=== PATIENT | female | born 1940 | race Caucasian/White ===

== ENCOUNTER 2021-04-15 13:45 | Outpatient (NON) | payer MEDICARE, SELFPAY | END 2021-04-15 13:46 | disposition home or self-care (01) | PROVIDERS: Visit Provider Family Medicine | DX: I87.2 Venous insufficiency (chronic) (peripheral) (principal); L03.115 Cellulitis of right lower limb | CPT/HCPCS: 87070; 87205 ==

== ENCOUNTER 2021-04-16 08:06 | Outpatient (NON) | payer MEDICARE, SELFPAY ==
[2021-04-16 08:27] LABS: Basophils Absolute Auto 0.04 K/mm3 (0.00-0.10); Basophils Percent Auto 0.6 % (0.0-1.0); Eosinophils Absolute Auto 0.28 K/mm3 (0.02-0.50); Hematocrit 38.9 % (35.0-42.0); Hemoglobin 12.8 g/dL (11.7-13.8); Immature Granulocyte Absolute 0.03 K/mm3 (0.00-0.00); Immature Granulocyte Percent A 0.4 % (0.0-0.0); Lymphocytes Absolute Auto 1.51 K/mm3 (1.10-4.50); Lymphocytes Percent Auto 21.6 % (18.0-42.0); Mean Corpuscular HGB Conc 32.9 g/dL (32.0-36.0); Mean Corpuscular Hemoglobin 32.6 pg (27.0-31.0); Mean Platelet Volume 10.4 fl (9.2-11.8); Monocytes Absolute Auto 0.69 K/mm3 (0.10-0.90); Monocytes Percent Auto 9.9 % (2.0-11.0); Neutrophils Absolute Auto 4.5 K/mm3 (1.7-7.2); Neutrophils Percent Auto 63.5 % (50.0-70.0); Platelet Count Result 336 K/mm3 (150-420); Red Blood Count 3.93 M/mm3 (4.20-5.40); Red Cell Distribution Width 13.1 % (11.6-14.4)
[2021-04-16 08:43] LABS: Alanine Aminotransferase 23 U/L (14-59); Albumin Level 3.6 g/dL (3.4-5.0); Alkaline Phosphatase 75 U/L (46-116); Anion Gap 8 mmol/L (8-16); Aspartate Amino Transferase 13 U/L (15-37); Bilirubin,Total 0.2 mg/dL (0.00-1.00); Blood Urea Nitrogen 16 mg/dL (7-18); Calcium 8.7 mg/dL (8.5-10.1); Carbon Dioxide 31 mmol/L (21-32); Chloride 104 mmol/L (98-108); Estimated Glomerular Filt Rate > 60; Glucose 125 mg/dL (70-99); Osmolality Calculated 298 mOsm/kg (285-295); Potassium 4.4 mmol/L (3.5-5.1); Sodium 143 mmol/L (136-145); Total Protein 6.8 g/dL (6.4-8.2)
[2021-04-16 09:26] LABS: Erythrocyte Sedimentation Rate 28 mm/hr (0-20)
== END 2021-04-16 08:07 | disposition home or self-care (01) ==
LOC: CHSLAB 08:09
PROVIDERS: Visit Provider Family Medicine
DX: L03.115 Cellulitis of right lower limb (principal)
CPT/HCPCS: 36415; 80053; 85025; 85652

== ENCOUNTER 2022-01-29 19:47 | Emergency (ER) | payer MEDICARE, SELFPAY ==
[2022-01-29 19:50] VITALS: BP 145/50; PULSE 75; RESP 18; TEMP 37.1; O2SAT 98
--- NOTE | 2022-01-29 19:50 | ED.SKABFB ---
HPI - Skin/Abscess/Foreign Bdy General Chief complaint: Skin/Abscess/Foreign Body Stated complaint: cellulitis on right leg Time Seen by Provider: 01/29/22 19:50 Source: patient Mode of arrival: ambulatory Limitations: no limitations History of Present Illness HPI narrative: Ms. Keller is a an 82-year-old female patient presenting to the clinic today with complaints of possible cellulitis to the right leg. She reports that she got a skin tear and that is becoming red and swollen. States she was moving a gas tin can and cut her leg 2 days ago. Has used peroxide and has applied triple antibiotic ointment to the affected area however is becoming more red and swollen and painful. Related Data Home Medications Medication Instructions Recorded Confirmed albuterol 90 mcg/actuation aerosol 90 mcg inhalation Q4H PRN Dyspnea 01/29/22 01/29/22 inhaler furosemide 40 mg tablet 40 mg PO DAILY 01/29/22 01/29/22 indomethacin 50 mg capsule 50 mg PO BID 01/29/22 01/29/22 lorazepam 2 mg tablet 2 mg PO DAILY 01/29/22 01/29/22 losartan 25 mg tablet 25 mg PO DAILY 01/29/22 01/29/22 Allergies Allergy/AdvReac Type Severity Reaction Status Date / Time carvedilol Allergy Unknown Verified 01/29/22 20:01 Sulfa (Sulfonamide Allergy Rash Verified 01/29/22 20:01 Antibiotics) Review of Systems Review of Systems: pertinent positives per HPI. Patient denies any fever, chills, rash, headache, visual changes, dizziness, cough, runny nose, sore throat, shortness of breath, chest pain, palpitations, nausea, vomiting, diarrhea, constipation, abdominal pain, or any urinary issues. PMFSH Comments At the time of my signature, I reviewed and agree with the nursing past medical, surgical, social, and family history. There is no relevant family history pertinent to the patient complaint. Exam Narrative: General: Well-developed, well nourished, in no apparent distress Head: Normocephalic, atraumatic. Cardio: Regular rate and rhythm, s1 and s2 normal, no murmur appreciated. Resp: Clear to auscultation bilaterally, no rhonchi, rales, wheezing or rubs. Integumentary: [place], warm, and dry, skin tear with green pustular center to the right lower leg with surrounding redness and erythremia. Course Course Emergency Course: Portions of this record may have been created with voice recognition software. Level of Care: Express Care Visit Vital Signs Vital signs: Vital Signs Temperature 37.1 C 01/29/22 19:50 Pulse Rate 75 01/29/22 19:50 Respiratory Rate 18 01/29/22 19:50 Blood Pressure 145/50 H 01/29/22 19:50 Pulse Oximetry 98 01/29/22 19:50 Oxygen Delivery Room Air 01/29/22 19:50 Temperature 37.1 C 01/29/22 19:50 Pulse Rate 75 01/29/22 19:50 Respiratory Rate 18 01/29/22 19:50 Blood Pressure 145/50 H 01/29/22 19:50 Pulse Oximetry 98 01/29/22 19:50 Oxygen Delivery Room Air 01/29/22 19:50 Vital signs reviewed MDM - Skin/Abscess/Foreign Bdy MDM Narrative Medical decision making narrative: At the time of visit patient is resting comfortably on the exam table. I suspect she has a acute wound infection with surrounding cellulitis. I will go ahead and put her on a course of doxycycline and have her clean the wound daily as instructed. Supportive measures were discussed with the patient she voiced understanding of discharge instructions and agrees to the treatment plan Differential Diagnosis Differential diagnosis: Likely abscess of skin or subcutaneous tissue, cellulitis and other (Cellulitis, skin tear, skin infection) Discharge Plan Discharge Clinical Impression: Skin tear Cellulitis Qualifiers: Site of cellulitis: extremity Site of cellulitis of extremity: lower extremity Laterality: right Qualified Code(s): L03.115 - Cellulitis of right lower limb Patient Disposition: Home, Self-Care Condition: Stable Instructions: Antibiotic Form, Cellulitis (ED), Skin Tear (ED) Additional Instructions:
== END 2022-01-29 20:20 | disposition home or self-care (01) ==
PROVIDERS: Emergency Provider Nurse Practitioner Family; PCP Family Medicine
DX: S81.811A Laceration without foreign body, right lower leg, initial encounter (principal); L03.115 Cellulitis of right lower limb; W45.8XXA Other foreign body or object entering through skin, initial encounter; I25.10 Atherosclerotic heart disease of native coronary artery without angina pectoris; Z95.5 Presence of coronary angioplasty implant and graft; I10 Essential (primary) hypertension; Z86.73 Personal history of transient ischemic attack (TIA), and cerebral infarction without residual deficits; F41.9 Anxiety disorder, unspecified; I25.2 Old myocardial infarction
CPT/HCPCS: 99213; G0463

== ENCOUNTER 2022-04-14 11:27 | Emergency (ER) | payer MEDICARE, SELFPAY ==
[2022-04-14 12:06] VITALS: BP 93/55; PULSE 75; RESP 20; TEMP 36.8; O2SAT 96
--- NOTE | 2022-04-14 12:54 | ED.SKABFB ---
HPI - Skin/Abscess/Foreign Bdy General Chief complaint: Skin/Abscess/Foreign Body Stated complaint: wound on right leg Source: patient Mode of arrival: ambulatory Limitations: no limitations History of Present Illness HPI narrative: 82 y/o female presented for c/o Right lower leg wound, bruising and tenderness after scraping the leg on the coffee table 3 days ago. States it was bleeding at the time and she approximated the skin flap, cleansed the site and applied steri strips for 2 days, then removed them and washed the site, applied more steri strips. No steri strips in place at this time. Endorses throbbing to site. Patient is concerned for infection stating she gets cellulitis 'easily.' Denies swelling, pus, fever, or warmth. Patient had carotid endarterectomy 3 weeks ago. Related Data Home Medications Medication Instructions Recorded Confirmed albuterol 90 mcg/actuation aerosol 90 mcg inhalation Q4H PRN Dyspnea 01/29/22 04/14/22 inhaler furosemide 40 mg tablet 40 mg PO DAILY 01/29/22 01/29/22 indomethacin 50 mg capsule 50 mg PO BID 01/29/22 01/29/22 lorazepam 2 mg tablet 2 mg PO PRN PRN Anxiety 01/29/22 01/29/22 losartan 25 mg tablet 25 mg PO DAILY 01/29/22 04/14/22 ergocalciferol (vitamin D2) 1,250 mcg PO WEEKLY 04/14/22 mcg (50,000 unit) capsule (Vitamin D2) gabapentin 300 mg capsule mg 04/14/22 Allergies Allergy/AdvReac Type Severity Reaction Status Date / Time carvedilol Allergy Unknown Verified 04/14/22 12:29 Sulfa (Sulfonamide Allergy Rash Verified 04/14/22 12:29 Antibiotics) Review of Systems Review of Systems: CONSTITUTIONAL: Denies body aches, fever, chills, or sweats. CARDIOVASCULAR: Denies chest pain, palpitations, or edema. RESPIRATORY: Denies cough or dyspnea. SKIN: Right leg wound MUSCULOSKELETAL: Denies back pain, joint pain, or myalgia. NEUROLOGIC: Denies headache, numbness, tingling, or weakness. PMFSH Comments At time of signature, I have reviewed and agree with nursing past medical, surgical, social and family history unless otherwise noted. Please see nursing chart for further information. There is no relevant family history pertinent to the presenting complaint Exam Narrative: GENERAL: Well-appearing EYES: conjunctivae clear, and EOMI. ENT: Mucous membranes moist. Oropharynx without edema, erythema or lesions. NECK: Supple. No lymphadenopathy CHEST: Clear to auscultation. HEART: Regular rate and rhythm. SKIN: Warm, dry. Right lateral lower leg with skin avulsion, approx 3cm; approximated with small scabbed area, no active drainage, induration or fluctuance. Tender to touch. Pt with poor turgor and purpura throughout. NEURO: Alert and oriented x3. Course Course Emergency Course: Patient is aware of diagnosis, understands and agrees to treatment plan. Anticipatory guidance given. Patient agrees to follow-up as directed and is aware of reasons to seek care at the emergency department. Portions of this record may have been created with voice recognition software Level of Care: Express Care Visit Vital Signs Vital signs: Vital Signs Temperature 98.3 F 04/14/22 12:06 Pulse Rate 75 04/14/22 12:06 Respiratory Rate 20 04/14/22 12:06 Blood Pressure 93/55 L 04/14/22 12:06 Pulse Oximetry 96 04/14/22 12:06 Oxygen Delivery Room Air 04/14/22 12:06 Temperature 98.3 F 04/14/22 12:06 Pulse Rate 75 04/14/22 12:06 Respiratory Rate 20 04/14/22 12:06 Blood Pressure 93/55 L 04/14/22 12:06 Pulse Oximetry 96 04/14/22 12:06 Oxygen Delivery Room Air 04/14/22 12:06 Reviewed MDM - Skin/Abscess/Foreign Bdy MDM Narrative Medical decision making narrative: Instructed patient to go to nearest ER immediately for any worsening symptoms including but not limited to: fever, pus, pain, or any symptoms concerning to the patient. Differential Diagnosis Differential diagnosis: Likely abscess of skin or subcutaneous tissue, urticaria, c
== END 2022-04-14 13:17 | disposition home or self-care (01) ==
PROVIDERS: Emergency Provider Nurse Practitioner Family; PCP Family Medicine
DX: S81.812A Laceration without foreign body, left lower leg, initial encounter (principal); W22.03XA Walked into furniture, initial encounter; I25.10 Atherosclerotic heart disease of native coronary artery without angina pectoris; Z95.5 Presence of coronary angioplasty implant and graft; I10 Essential (primary) hypertension; I25.2 Old myocardial infarction; Z86.73 Personal history of transient ischemic attack (TIA), and cerebral infarction without residual deficits; Z86.16 Personal history of COVID-19
CPT/HCPCS: 99213; G0463

== ENCOUNTER 2024-12-31 10:50 | Emergency (ER) | payer MEDICARE, SELFPAY ==
--- OUTSIDE RECORDS SUMMARY | 2024-12-31 10:52 | XMS_ITS | Clinical Summary ---
Author Organization [facility] Address [address] [place] [address] Care Team Providers Care Wall Attendant Name Role Phone Unavailable Primary Care Provider Unavailabl e Social History Tobacco Use Types Packs/Day Years Used Date Smoking Tobacco: Never Comments Unknown Sex and Gender Information Value Date Recorded Sex Assigned at Not on file Legal Sex Female 10:06 PM CDT Gender Identity Not on file Sexual Orientation Not on file Plan of Treatment Health Maintenance Due Date Last Done Comments DTaP, Tdap and Td Vaccines ( 1 - Tdap) 01/19/1960 Pneumococcal Vaccine: 50+ Ye ars (1 of 1 - PCV) 1991 Zoster Vaccines (1 of 2) 1991 Dexa Scan (General) 2006 RSV Immunization or 60+ Years (1 - 1-dose 75+ series) 01/19/2016 COVID-19 Vaccine (2023-2 5 season) 2024 Meningococcal B Vaccine Aged Out No l onger eligible based on patient's age to complete this topic Meningococcal Vaccine Aged Out No toya liz eligible based on patient's age to complete this topic RSV Immunizations Under 20 Months Aged Out No longer eligible based on patient's age to complete this topic
--- OUTSIDE RECORDS SUMMARY | 2024-12-31 10:52 | XMS_ITS | Clinical Summary ---
Author Organization [facility] Address [address] [facility], [place] [address] Phone Care Team Providers Care Smoked Meat Preparer Name Role Phone Paul Hernandez MD Primary Care Provider [phone] Allergies Active Allergy Reactions Criticality Noted Date Comments Carvedilol Unknown Sulfa Antibiotics Hives Medium 06/12/2017 Sulfamethoxazole-Trimethoprim Rash Medium 2016 Medications LORazepam (ATIVAN) 2 MG Tablet TK 1 T PO TID PRN 0 8 Active albuterol (PROVENTIL, VENTOLIN) (2.5 MG/3ML) 0.083% Nebulizer Soln INL CONTENTS OF ONE NEBULE VIA NEBULIZER Q 6 H 5 8 Active losartan (COZAAR) 25 MG Tablet take 1 tablet by oral route every day 6 Active ergocalciferol (VITAMIN D) 29117 UNIT Capsule TK 1 C PO Q WK 0 8 Active tiotropium (SPIRIVA RESPIMAT) 1.25 MCG/ACT Aerosol Solution [The details of the medication are not available because there are pending changes by a home health clinician.] 2 Inhaler 8 Active Additional Information Patient not taking.Reason: Other (discontinued by MD), Informant: Self, Reported on 12/15/2024 PROAIR HFA 108 (90 Base) MCG/ACT Aerosol Solution INL 2 PFS PO Q 4 TO 6 H PRN 0 8 Active azithromycin (ZITHROMAX Z-ERIS) 250 MG Tablet [The details of the medication are not available because there are pending changes by a home health clinician.] 6 Tab 8 Active Additional Information Patient not taking.Reason: Other (med list cleanup), Informant: Self, Reported on 12/29/2024 umeclidinium (INCRUSE ELLIPTA) 62.5 MCG/INH AEROSOL POWDER, BREATH ACTIVATED [The details of the medication are not available because there are pending changes by a home health clinician.] 1 Each 5 8 Active Additional Information Patient not taking.Reason: Other (med list cleanup), Informant: Self, Reported on 12/15/2024 acetaminophen (TYLENOL) 325 MG Tablet Take 2 Tablets by mouth every 6 hours as needed for Mild or more severe pain. Active Budeson-Glycop yrrol-Formoter ol (Breztri Aerosphere) 160-9-4.8 MCG/ACT Aerosol Take 2 Puffs by mouth 2 times daily. Active Diclofenac Sodium (VOLTAREN) 1 % Gel Apply 2 g 4 times daily. Active docusate sodium (COLACE) 100 MG Tablet Take 100 mg by mouth 2 times daily. Active DULoxetine HCl 20 MG Capsule Delayed Release Sprinkle Take 1 Capsule by mouth daily. Active Fluticasone Furoate 50 MCG/ACT AEROSOL POWDER, BREATH ACTIVATED 1 [place] by Nasal route daily. Active furosemide (LASIX) 40 MG Tablet Take 1 Tablet by mouth 2 times daily. Active Magnesium 200 MG Tablet Take 1 Tablet by mouth daily. Active Multivitamin-M inerals (Multivitamin Women 50+) Tablet Take 1 Tablet by mouth daily. Active Potassium Gluconate (SD Potassium Gluconate) 595 (99 K) MG Tablet Take 1 Tablet by mouth 2 times daily. Active Propylene Glycol 0.6 % Solution Place 1 Drop in both eyes daily. Active tiZANidine (ZANAFLEX) 2 MG Tablet Take 1 Tablet by mouth every 6 hours as needed for Muscle spasms. Active traMADol (ULTRAM) 50 MG Tablet Take 1 Tablet by mouth every 6 hours as needed for Mild or more severe pain. Active traMADol (ULTRAM) 50 MG Tablet 7 12/08/19 25 Discontin ued(Med List Clean Up) aspirin EC (ASPIR-LOW) 81 MG Tablet Delayed Response take 1 tablet by oral route every day 6 12/08/19 25 Discontin ued(Med List Clean Up) ADVAIR DISKUS 250-50 MCG/DOSE AEROSOL POWDER, BREATH ACTIVATED INL 1 PUFF PO BID 3 8 12/08/19 25 Discontin ued(Med List Clean Up) SYMBICORT 160-4.5 MCG/ACT Aerosol INL 2 PFS PO TWICE DAILY. RM WITH WATER AFTER U TO REDUCE AFTERTASTE AND INCIDENCE OF CANDIDIASIS. DO NOT SWALLOW 2 8 12/08/19 25 Discontin ued(Med List Clean Up) Naproxen Sodium 220 MG Capsule Take by mouth. 12/08/19 25 Discontin ued(Med List Clean Up) dexamethasone (DECADRON) 4 MG Tablet Take by mouth. 7 12/08/19 25 Discontin ued(Med List Clean Up) benzonatate (TESSALON) 100 MG Capsule Take by mouth. 7 12/08/19 25 Discontin ued(Med List Clean Up) imiquimod (ALDARA) 5 % Cream 7 12/08/19 25 Discontin ued(Med List Clean Up) furosemide (LASIX) 20 MG Tablet TAKE 1 TABLET BY MOUTH EVERY DAY 7 12/08/19 25 Discontin ued(Med List Clean Up) bisacodyl EC (DULCOLAX) 5 MG Tablet Delayed Response Take by mouth. 12/08/19 25 Discontin ued(Med List Clean Up) MAGNESIUM PO 200 mg. 12/08/19 25 Discontin ued(Med List Clean Up) nitrofurantoin , macrocrystal-m onohydrate, (MACROBID) 100 MG Capsule 0 8 12/08/19 25 Discontin ued(Med List Clean Up) Coenzyme Q10 10 MG Capsule Take by mouth. 0 25 Discontin ued(Med List Clean Up) guaiFENesin (MUCINEX) 600 MG TABLET SR 12 HR Take by mouth. 12/08/19 25 Discontin ued(Med List Clean Up) Potassium 99 MG Tablet Take by mouth. 12/08/19 25 Discontin ued(Med List Clean Up) Docusate Sodium (COLACE PO) Take by mouth. 12/08/19 25 Discontin ued(Med List Clean Up) indomethacin (INDOCIN) 50 MG Capsule 8 12/08/19 25 Discontin ued(Med List Clean Up) Active Problems Problem Noted Date Diagnosed Date Panlobular emphysema 11/05/2017 Pulmonary hypertension 11/05/2017 Non morbid obesity 11/05/2017 Chronic respiratory failure with hypoxia 018 Encounters Date Type Department Care Team Description 12/29/2024 4:00 AM CDT Home Care Visit [address] [address] Valerie Li, RN SN - OASIS DISCHARGE 12/23/2024 1:00 PM CDT Home Care Visit [address] [address] Valerie Li, RN SN - WOUND VISIT 12/21/2024 2:30 PM CDT Home Care Visit [address] [address] Valerie Li, RN SN - WOUND VISIT 12/15/2024 11:00 AM CDT Home Care Visit [address] [address] Valerie Li, RN SN - WOUND VISIT 12/13/2024 1:30 PM CDT Home Care Visit [address] [address] Riddhi Stewart RN SN - WOUND VISIT 12/13/2024 Home Care Visit [address] [address] Riddhi Love RN CARE CONFERENCE 12/11/2024 Home Care Visit [address] [address] Valerie Li, RN CASE COMMUNICATION 12/10/2024 Home Care Visit [address] [address] Valerie Li, RN TELEPHONE ENCOUNTER 12/10/[address] [address] Hayde López RN Wound Supplies 12/09/2024 3:00 PM CDT Home Care Visit [address] [address] Laine Bosch, PT PT - INITIAL EVALUATION 12/08/2024 11:30 AM CDT Home Care Visit [address] [address] Valerie Li RN SN - WOUND VISIT 12/06/2024 1:00 PM CDT Home Care Visit [address] [address] Riddhi Love RN SN - OASIS START OF CARE 12/06/2024 Plan of Care Documentation [address] [address] from Last 3 Months Immunizations Immunization Administration Dates Next Due TDAP Vaccine 11/30/2017 Family History Medical History Relation Name Comments Heart Disease Father Hypertension Father Stroke Father Breast Cancer Mother Diabetes Mother Heart Disease Mother Hypertension Mother Relation Name Status Comments Father Mother Social History Tobacco Use Types Packs/Day Years Used Date Smoking Tobacco: Former Cigarettes 2 40 Smokeless Tobacco: Never Tobacco Cessation:Counseling Given: No Alcohol Use Standard Drinks/Week Comments No 0 (1 standard drink = 0.6 oz pur e alcohol) Comments No Sex and Gender Information Value Date Recorded Sex Assigned at Not on file Legal Sex Female 12:44 AM CDT Gender Identity Not on file Sexual Orientation Not on file Last Filed Vital Signs Vital Sign Reading Time Taken Comments Blood Pressure 122/64 12/29/2024 11:00 AM CDT Pulse 89 12/29/2024 11:00 AM CDT Temperature 37.1 C (98.7 F) 12/29/2024 11:00 AM CDT Respiratory Rate 18 12/29/2024 11:00 AM CDT Oxygen Saturation 96% 12/29/2024 11:00 AM CDT Inhaled Oxygen Concentration - - Weight 85.4 kg (188 lb 4.8 oz) 06/24/2018 1:13 P M SODA FOUNTAIN CLERK Height 160 cm (5' 3) 06/24/2018 1:13 PM SODA FOUNTAIN CLERK Body Mass Index 33.36 06/24/2018 1:13 PM SODA FOUNTAIN CLERK Plan of Treatment Health Maintenance Due Date Last Done Comments Hepatitis C Virus (HCV) Screening 1940 SARS-COV-2 Immunization ( season) 2024 04/11/2021, 10/06/2020, 09/10/2020 DEXA Bone Density 02/04/2025 02/04/2023, , 01/26/2019 Influenza Immunization (#1) 02/27/202503/29, 03/26/2023, 03/13/2023, Additional history exists Pneumococcal Immunization (50+ years) Completed 04/29/2016, 06/29/2010 Pneumococcal Immunization Combined Discontinued 04/29/2016, 06/29/2010 Zoster Immunization Completed 10/10/2021, Respiratory Syncytial Virus (RSV) Immunization (Adult) Completed 07/06/2023, 06/12/2023 DTaP/Tdap/Td Immunization Discontinued 2024, 11/30/2017, 12/22/2014 Hepatitis B Immunization Aged Out No longer eligible based on patient's age to complete this topic Human Papillomavirus (HPV) Immunization Aged Out No longer eligible based on patient's age to complete this topic Meningococcal Immunization (ACWY) Aged Out No longer eligible based on patient's age to complete this topic Rotavirus Immunization Aged Out No lo nger eligible based on patient's age to complete this topic Insurance MEDICARE [facility] Advance Directives * Full Code (Latest Code Status on File) Date Activated Date Inactivated Comments 12/07/2024 8:00 PM Care Teams Smoked Meat Preparer Relationship Specialty Start Date End Date Paul Hernandez MD [address] [place] [address] PCP - General Internal Medicine 09/01/17
--- OUTSIDE RECORDS SUMMARY | 2024-12-31 10:52 | XMS_ITS | Clinical Summary ---
Author Organization [facility] Address [address] [place] [address] Phone Care Team Providers Care Speech Language Pathologist Travel Name Role Phone Unavailable Primary Care Provider Unavailabl e Allergies No known active allergies Medications OXYCODONE HCL/ACETAMINOPHE N (PERCOCET ORAL) Take by mouth. Active ERGOCALCIFEROL, VITAMIN D2, (VITAMIN D ORAL) Take by mouth. Active Active Problems No known active problems Social History Tobacco Use Types Packs/Day Years Used Date Smoking Tobacco: Former Smokeless Tobacco: Never Comments No Sex and Gender Information Value Date Recorded Sex Assigned at Not on file Legal Sex Female 4:34 AM GENERATOR MECHANIC Gender Identity Not on file Sexual Orientation Not on file Last Filed Vital Signs Vital Sign Reading Time Taken Comments Blood Pressure 130/58 05/13/2011 11:22 AM GENERATOR MECHANIC Pulse 96 05/13/2011 11:22 AM GENERATOR MECHANIC Temperature 36.9 C (98.4 F) 05/13/2011 11:22 AM GENERATOR MECHANIC Respiratory Rate 18 05/13/2011 11:22 AM GENERATOR MECHANIC Oxygen Saturation - - Inhaled Oxygen Concentration - - Weight 68 kg (150 lb) 05/13/2011 11:22 AM GENERATOR MECHANIC Height 160 cm (5' 3) 05/13/2011 11:22 AM GENERATOR MECHANIC Body Mass Index 26.57 05/13/2011 11:22 AM GENERATOR MECHANIC Plan of Treatment Health Maintenance Due Date Last Done Comments DTAP/TDAP/TD VACCINES (1 - Tdap) 01/19/1960 PNEUMOCOCCAL VACCINE 50+ YEARS (1 of 1 - PCV) 01/18/19 91 ZOSTER VACCINE (1 of 2) 1991 OSTEOPOROSIS SCREENING 2006 RSV VACCINE (60+ or ) (1 - 1-dose 75+ series) 01/19/2016 INFLUENZA VACCINE (#1) 2025 Insurance MEDICARE PART A AND B [facility]
--- OUTSIDE RECORDS SUMMARY | 2024-12-31 10:52 | XMS_ITS | Encounter Summary ---
Author Organization [facility] Address [address] [place] [address] Care Team Providers Care As400 Analyst Name Role Phone Unavailable Primary Care Provider Unavailabl e Encounter Details Date Type Department Care Team (Late st Contact Info) Description 04/09/1998 Outpatient Historical [facility] Trinity Bates MD [address] [place], [place] [id number] Social History Tobacco Use Types Packs/Day Years Used Date Smoking Tobacco: Never Assessed Comments Unknown Sex and Gender Information Value Date Recorded Sex Assigned at Not on file Legal Sex Female 4:34 AM DEVELOPING MACHINE OPERATOR Gender Identity Not on file Sexual Orientation Not on file documented as of this encounter Plan of Treatment Not on file documented as of this encounter Visit Diagnoses Not on filedocumented in this encounter
--- OUTSIDE RECORDS SUMMARY | 2024-12-31 10:56 | XMS_ITS | Encounter Summary ---
Author Organization [facility] Address [address] [place] [address] Care Team Providers Care Industrial Technology Teacher Name Role Phone Paul Hernandez MD Primary Care Provider [phone] Luis Felipe Azul MD Unavailable [phone] Jerel Dupont MD Unavailable [phone] Raquel Candelaria RN Unavailable [phone] Cosme Vivas LPN Unavailable [phone] Prachi Merchant RN Unavailable [phone] Yelena DownsW Unavailable Unavaila ble Reason for Visit * Reason Onset Date Comments Scheduling Appointments 01/30/2021 Confirmi ng bone density scan- no answer Encounter Details Date Type Department Care Team (Late st Contact Info) Description 01/30/2021 Telephone [facility] [address] [place] [address] Lynn Paulino RT Scheduling Appointments (Confirming bone density scan- no answer) Social History Tobacco Use Types Packs/Day Years Used Date Smoking Tobacco: Former Cigarettes Q uit: 2007 Smokeless Tobacco: Former Comments:Smoking History Pac ks/day: 2 Packs Alcohol Use Standard Drinks/Week Comments No 0 (1 standard drink = 0.6 oz pur e alcohol) PHQ-2 Answer Date Recorded PHQ-2 Total Score 0 01/17/2021 Comments No Sex and Gender Information Value Date Recorded Sex Assigned at Not on file Legal Sex Female 3:31 AM HADOOP ANALYST Gender Identity Not on file Sexual Orientation Not on file Occupation Industry Job Start Date Job End Date retired Not on file Not on file Not on file documented as of this encounter Plan of Treatment Not on file documented as of this encounter Visit Diagnoses Not on filedocumented in this encounter Additional Health Concerns Infection Onset Date Last Indicated Resolved Time COVID: Suspected 03/21/2024 03/21/2024 03/21/2024 10:36 AM CDT COVID19 Comment:This patient is not immunocompromised. Based on a S&S onset date of 03/21/24 plus no immunosuppression this patient is first eligible for COVID: Recovered evaluation on 04/01/24. Anny Humphries, JAZMIN 03/21/2024 03/21/2024 04/07/2024 3:05 AM C DT COVID: Recovered Comment:Added based on recent COVID infection. 04/07/2024 04/08/2024 07/06/2024 3:[address] COVID: Suspected 09/13/2024 09/13/2024 09/13/2024 7:25 PM CDT documented as of this encounter Care Teams Industrial Technology Teacher Relationship Specialty Start Date End Date Paul Hernandez MD [address] [place] [address] PCP - General 09/26/16 Luis Felipe Azul MD [address] [place] [address] [place] [address] Phlebotomy Program Coordinator Cardiology 02/19/22 Jerel Dupont MD [address] [place] [address] [place] [address] Surgeon Vascular Surgery 03/14/22 Raquel Candelaria, CHETNA [address] [place] [address] [address] [place] [address] Station Engineer Main Line 10/22/22 12/01/22 Cosme Vivas LPN [address] [place] [address] [address] [place] [address] ACO Care Intelligence Officer Basic 01/27/23 01/27/23 Prachi Merchant RN [address] [place] [address] [address] [place] [address] Station Engineer Main Line 07/16/23 11/10/23 Yelena Downs, JOB COACHING Verification Engineer 07/29/23 08/06/23 documented as of this encounter
--- OUTSIDE RECORDS SUMMARY | 2024-12-31 10:56 | XMS_ITS | Encounter Summary ---
Author Organization [facility] Healthcare Address [address] [place] [address] Care Team Providers Care Merchandising Representative Name Role Phone Paul Hernandez MD Primary Care Provider [phone] Luis Felipe Azul MD Unavailable [phone] Jerel Dupont MD Unavailable [phone] Reason for Visit * Reason Onset Date Comments Test Results 12/26/2024 Encounter Details Date Type Department Care Team (Late st Contact Info) Description 12/26/2024 Telephone Family Physicians [facility] [address] [facility] [place] [address] Paul Hernandez MD [address] [place] [address] Test Results Social History Tobacco Use Types Packs/Day Years Used Date Smoking Tobacco: Former Cigarettes 1.5 51 1 957 - 2008 Passive Smoke Exposure: Past Smokeless Tobacco: Never Comments:Smoking History Pac ks/day: 2 Packs Alcohol Use Standard Drinks/Week Comments No 0 (1 standard drink = 0.6 oz pur e alcohol) [facility] Utilities Answer Date Recorded In the past 12 months has e THE Football App, gas, oil, or water company threatened to shut off services in your home? No 07/29/2023 Social Connection and Isolat ion Panel [NHANES] Answer Date Recorded In a typical week, how many times do you talk on the phone with family, friends, or neighbors? More than three times a week 07/29/2023 How often do you get togethe r with friends or relatives? Once a week 07/29/2023 How often do you attend chur ch or synagogue services? Never 07/29/2023 Do you belong to any clubs o r organizations such as druze groups, unions, fraternal or athletic groups, or school groups? No 07/29/2023 How often do you attend meet ings of the clubs or organizations you belong to? Never 07/29/2023 Are you , , di vorced, , never , or living with a partner? 07/29/2023 AUDIT-C Answer Date Recorded Q1: How often do you have a drink containing alcohol? Never 03/26/2024 Q2: How many drinks containi ng alcohol do you have on a typical day when you are drinking? Patient does not drink Q3: How often do you have si x or more drinks on one occasion? Never 03/26/2024 Overall Financial Resource Strain (CARDIA) Answe r Date Recorded How hard is it for you to pa y for the very basics like food, housing, medical care, and heating? Somewhat hard 07/29/2023 PHQ-2 Answer Date Recorded PHQ-2 Total Score (If total score is 3 or more points, staff should administer the PHQ-9) 0 12/01/2024 Hunger Vital Sign Answer Date Recorded Within the past 12 months, y ou worried that your food would run out before you got the money to buy more. Never true 07/29/19 24 Within the past 12 months, t he food you bought just didn't last and you didn't have money to get more. Never true 07/29/2023 PRAPARE - Transportation Answer Date Re corded In the past 12 months, has l ack of transportation kept you from medical appointments or from getting medications? No 07/01 In the past 12 months, has l ack of transportation kept you from meetings, work, or from getting things needed for daily living? No 07/29/2023 Housing Stability Vital Sign Answer Justin e Recorded In the last 12 months, was t here a time when you were not able to pay the mortgage or rent on time? No 07/29/2023 In the last 12 months, how many places have you lived? 1 07/29/2023 In the last 12 months, was t here a time when you did not have a steady place to sleep or slept in a long term (including now)? No 07/29/2023 PHQ-9 Answer Date Recorded PHQ-9 Total Score 2 07/19/2024 Personal Safety Answer Date Recorded Have you ever been in or are you currently in a harmful physical or emotional relationship or is someone making you feel afraid or unsafe? 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 Gender Identity Not on file Sexual Orientation Not on file Occupation Industry Job Start Date Job End Date retired Not on file Not on file Not on file documented as of this encounter Miscellaneous Notes * Telephone Encounter - Jelly Castelan MA - 12/27/2024 8:36 AM CDT Pt aware and states she has been ice/heating the area, Thanks * Telephone Encounter - Jelly Castelan MA - 12/26/2024 3:14 PM CDT Please review x-ray and advise, Thanks * Telephone Encounter - Sunitha Landry - 12/26/2024 2:51 PM CDT Test Result Request Type of test: 12/20/24 Date of test: R hip xray Where was the test performed at?[facility] Did provider dictate result yet? No Additional Questions/Comments: - Does message need to be routed? Yes-Action Needed documented in this encounter Plan of Treatment Not on file documented as of this encounter Goals Goal Patient Goal Type Associated Problems Recent Progress Patient-Stated? Author DAVID General Goal - Patient schedules and keeps appointments with all recommended providers ACO Care Management On track(2023 11:28 AM CDT) No Prachi Merchant RN Note: Problem: Potential for medical complications and readmission if follow-up appointments are not scheduled Interventions: - Ensure all follow-up appointments are scheduled, all prescribed medications have been received. - Address any barriers for keeping scheduled appointment. - Coordinate with patient/caregiver(s) to ensure patient is able to keep scheduled appointment. - Emphasize importance of keeping scheduled appointments. - Identify and discuss questions for next provider visit. - Follow up with patient after scheduled appointment(s) to review any new orders or changes made to medication regimen. DAVID General Goal - Patient / caregiver verbalizes lifestyle changes necessary to meet self-care needs and executes self-care activities to utmost capability ACO Care Management On track(2023 11:28 AM CDT) Prachi Lloyd RN Note: Problem: At Risk for Self Care Deficit Interventions: - Assess patient's level of dependence on others. Guide the patent in accepting the needed amount of dependence. - Contact current caregiver and assess their involvement with patient and level of assistance provided. - Assess appropriateness for Home Health. Start referral process if skilled need is present. - Encourage independent ADL's as appropriate. Ensure patient has the appropriate tools at home to be as independent as possible. - Provide fall prevention education to patient and caregiver. - Evaluate need for assistive devices. - Refer to SW if appropriate and patient is agreeable. DAVID General Goal - Level of ADL/IADL assistance will meet patient's needs ACO Care Management On track(2023 11:28 AM CDT) No Prachi Merchant RN Note: Problem: Inadequate assistance to manage ADL's/IADL's Interventions: - Contact current caregiver and assess their involvement with patient and level of assistance provided. Inquire if any other family or friends can provide additional assistance. - Assess appropriateness for Home Health. Start referral process if skilled need is present. - Encourage independent ADL's as appropriate. Ensure patient has the appropriate tools at home to be as independent as possible. - Refer to SW if appropriate and patient is agreeable. CAD Goal - Patient will verbalize understanding of wound care orders, signs of infection, and other complications to report to physician ACO Care Management On track(2023 11:28 AM CDT) No Prachi Merchant RN Note: Problem: Knowledge deficit related to pot op instructions and/or incisional care Interventions: - Review wound care instructions with patient. - Assess compliance with wound care instructions. - Assess for signs of infection: Increased redness, swelling, drainage or foul odor, fever. Provide education on infection symptoms and to notify physician if any are found. - If patient had a PCI: Assess for signs of hematoma. Provide education on hematoma symptoms and to notify physician if any are found. - Ensure appointment is scheduled for suture/staple removal if applicable. COPD Goal - Patient is knowledgeable about oxygen safety and precautions ACO Care Management No Prachi Merchant RN Note: Problem: Oxygen Safety Interventions: - Instruct on oxygen safety precautions: Do not smoke and do not allow others to smoke around you, Post Oxygen in Use and No Smoking signs at your front door and around your home, avoid use of aerosol sprays, alcohol or Vaseline near oxygen source, do not use candles in the home, keep oxygen tanks at least 5 feet away from radiators or heaters, ensure smoke detectors are in working condition. - Choose water based products instead of petroleum products. - Store oxygen canisters safely and securely in the upright position, away from any type of heat source. - Ensure patient has informed electric company they are oxygen dependent. Many companies offer oxygen-dependent patients priority service or a generator when power goes out. documented as of this encounter Visit Diagnoses Not on filedocumented in this encounter Care Teams Merchandising Representative Relationship Specialty Start Date End Date Paul Hernandez MD [address] [place] [address] PCP - General 09/26/16 Luis Felipe Azul MD [address] [place] [address] [place] [address] [facility] Cardiology 02/19/22 Jerle Dupont MD [address] [facility] [address] [place] [address] Surgeon Vascular Surgery 03/14/22 documented as of this encounter
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
--- OUTSIDE RECORDS SUMMARY | 2024-12-31 10:56 | XMS_ITS | Encounter Summary ---
Author Organization [facility] Address [address] [place] [address] Care Team Providers Care Soil Science Technical Officer Name Role Phone Paul Hernandez MD Primary Care Provider [phone] Luis Felipe Azul MD Unavailable [phone] Jerel Dupont MD Unavailable [phone] Reason for Visit * Reason Onset Date Comments Medical Question/Miscellaneous 12/26/2024 Encounter Details Date Type Department Care Team (Late st Contact Info) Description 12/26/2024 Telephone [facility] [address] [facility] [place] [address] Paul Hernandez MD [address] [place] [address] Medical Question/Miscellaneous Social History Tobacco Use Types Packs/Day Years Used Date Smoking Tobacco: Former Cigarettes 1.5 51 1 957 - 2008 Passive Smoke Exposure: Past Smokeless Tobacco: Never Comments:Smoking History Pac ks/day: 2 Packs Alcohol Use Standard Drinks/Week Comments No 0 (1 standard drink = 0.6 oz pur e alcohol) [facility] Utilities Answer Date Recorded In the past 12 months has e electric, gas, oil, or water company threatened to [...] often do you attend chur ch or roman catholic services? Never 07/29/2023 Do you belong to any clubs o r organizations such as baptist groups, unions, fraternal or athletic groups, or [...] place to sleep or slept in a residential (including now)? 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 Please reach out to the patient and update. CREDIT CHECKER attempted to get more information but patient could not provide. Does message need to be routed? Yes-Action [...] CDT) No Prachi Merchant RN Note: Problem: At Risk for Self [...] and precautions ACO Care Management No Prachi Merchant, RN Note: Problem: Oxygen Safety Interventions: - [...] on filedocumented in this encounter Care Teams Soil Science Technical Officer Relationship Specialty Start Date End Date Paul Hernandez MD [address] [place] [address] PCP - General 09/26/16 Luis Felipe Azul MD [address] [place] [address] [address] [place] [id number] Dress Draper Cardiology 02/19/22 Jerel Dupont MD [address] [place] [address] DR [address]ENRY [address] [place] [id number] Surgeon Vascular Surgery 03/14/22 documented as of this encounter
--- OUTSIDE RECORDS SUMMARY | 2024-12-31 10:56 | XMS_ITS | Clinical Summary ---
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 (S/N [id number]) CLINICAL INFORMATION: Current height: 62 inches Maximum [...] Aniket John M.D. MF: GRAHAM Report ID: [id number] Reading Location: [id number] Procedure Note Aniket John MD - 02/04/2023 EXAM DESCRIPTION: DEXA AXIAL SKELETON BONE DENSITY 1 OR MORE SITES REASON FOR STUDY: 83 y/o year old F with given history of: post-menopausal osteoporosis prevention Screening. Sales Project Administrator/Model: 360T SL (S/N [id number]) CLINICAL INFORMATION: Current height: 62 inches Maximum [...] Aniket John M.D. MF: GRAHAM Report ID: [id number] Reading Location: [place] [address] Esme Tolentino NP IMG DXA PROCEDURES Final Re sult from Last 3 Months or Most Recently Relevant to Health Maintenance Insurance MEDICARE [facility] MEDICARE BLUE CROSS MEDICARE SUPPLEMENT MEDICARE [facility] MEDICARE BLUE CROSS MEDICARE SUPPLEMENT [facility] MEDICARE [facility] BLUE CROSS MEDICARE SUPPLEMENT Advance Directives For more information, please contact: [phone] Documents on File Type Date Recorded Patient Family Coach Expl anation ADVANCE DIRECTIVE 03/16/2023 12:06 PM Nanda r of Chief Operator Reformer-Medical * Full Code (Latest Code Status on [...] 6:36 PM 03/14/2022 3:33 PM Care Teams Men'S Furnishings Salesperson Relationship Specialty Start Date End Date Paul Hernandez MD [address] [place] [address] PCP - General 09/26/16 Luis Felipe Azul MD [address] [place] [address] DR [address] [place] [address] Seo Coordinator Cardiology 02/19/22 Jerel Dupont MD [address] [place] [address] DR [address] [place] [address] Surgeon Vascular Surgery 03/14/22
--- OUTSIDE RECORDS SUMMARY | 2024-12-31 10:56 | XMS_ITS | Encounter Summary ---
Author Organization [facility] Healthcare Address [address] [place] [address] Care Team Providers Care Coffee Brewer Name Role Phone Paul Hernandez MD Primary Care Provider [phone] Luis Felipe Azul MD Unavailable [phone] Jerel Dupont MD Unavailable [phone] Reason for Visit * Reason Onset Date Comments Symptom Based Call 12/19/2024 Encounter Details Date Type Department Care Team (Late st Contact Info) Description 12/19/2024 Telephone [facility] [address] [facility] [place] [address] Paul Hernandez MD [address] [place] [address] Symptom Based Call Social History Tobacco Use Types Packs/Day Years Used Date Smoking Tobacco: Former Cigarettes 1.5 51 1 957 - 2008 Passive Smoke Exposure: Past Smokeless Tobacco: Never Comments:Smoking History Pac ks/day: 2 Packs Alcohol Use Standard Drinks/Week Comments No 0 (1 standard drink = 0.6 oz pur e alcohol) [facility] Utilities Answer Date Recorded In the past [...] often do you attend chur ch or rastafari services? Never 07/29/2023 Do you belong to any clubs o r organizations such as pentecostalism groups, unions, fraternal or athletic groups, or [...] place to sleep or slept in a [place] facility (including now)? 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 Gender Identity Not on file Sexual Orientation Not on file Occupation Industry Job Start Date Job End Date retired Not on file Not on file Not on file documented as of this encounter Miscellaneous Notes * Telephone Encounter - Kiki Waite - 12/19/2024 1:35 PM CDT error documented in this encounter Plan of Treatment [...] on filedocumented in this encounter Care Teams Coffee Brewer Relationship Specialty Start Date End Date Paul Hernandez MD [address] [place] [address] PCP - General 09/26/16 Luis Felipe Azul MD [address] [place] [address] DR [address] [place] [address] Emergency Room Clerk Cardiology 02/19/22 Jerel Dupont MD [address] [place] [address] DR [address] [place] [address] Surgeon Vascular Surgery 03/14/22 documented as of this encounter
[2024-12-31 11:05] VITALS: BP 128/56; PULSE 76; RESP 20; TEMP 36.7; O2SAT 97
--- NOTE | 2024-12-31 11:06 | ED.LOWEXIN ---
HPI - Extremity Injury (Lower) General Chief Complaint: Extremity Injury, Lower Stated Complaint: Injury to Left Leg patient presents to [facility] injury to left lower leg 2 days ago patient dropped a recipe box on her leg. Patient noted the area she cleaned up and applied Steri-Strips to close the wound but now areas getting more painful, red, and swollen believes this is getting infected. Denies any changes to numbness or tingling in left lower leg. Denies any fever, chills, body aches, or drainage from the wound. Related Data Home Medications ?Medication ?Instructions ?Recorded ?Confirmed ?Last Taken ?Type furosemide 40 mg tablet 40 mg PO DAILY 01/29/22 01/29/22 Unknown History lorazepam 2 mg tablet 2 mg PO PRN PRN Anxiety 01/29/22 01/29/22 Unknown History losartan 25 mg tablet 25 mg PO DAILY 01/29/22 04/14/22 Unknown History ergocalciferol (vitamin D2) 1,250 mcg PO WEEKLY 04/14/22 Unknown History mcg (50,000 unit) capsule (Vitamin D2) albuterol sulfate 90 mcg/actuation inhalation 12/31/24 Unknown History aerosol inhaler magnesium 12/31/24 Unknown History potassium 12/31/24 Unknown History Allergies Allergy/AdvReac Type Severity Reaction Status Date / Time carvedilol Allergy Unknown Verified 12/31/24 11:05 Sulfa (Sulfonamide Allergy Rash Verified 12/31/24 11:05 Antibiotics) Review of Systems Constitutional: Constitutional: Reports as per HPI, Denies chills, Denies fatigue, Denies fever(s) and Denies weakness Eyes: Eyes: Reports no additional eye complaints ENT: Reports as per HPI Cardiovascular: Cardiovascular: Reports no additional cardiovascular complaints Respiratory: Respiratory: Reports no additional respiratory complaints Gastrointestinal: Gastrointestinal: Reports no additional gastrointestinal complaints Genitourinary: Genitourinary: Reports no additional female genitourinary complaints Musculoskeletal: Musculoskeletal: Reports as per HPI, Reports arthralgias, Reports joint swelling and Denies muscle cramps Integumentary/Breasts: Skin/Breast: Reports as per HPI, Denies pruritus, Denies rash and Denies skin ulcer Comments: Laceration left lower leg, redness, swelling Neurologic: Reports as per HPI, Denies numbness and Denies weakness Psychiatric: Psychiatric: Reports no additional psychiatric complaints Endocrine: Endocrine: Reports no additional endocrine complaints Hematologic/Lymphatic: Hematologic/Lymphatic: Reports no additional hematologic/lymphatic complaints Allergic/Immunologic: Allergic/Immunologic: Reports no additional allergic/immunologic complaints Exam Const: General: healthy appearing and no acute distress Nutritional Appearance: well nourished Orientation/consciousness: patient oriented x3 Limitations: no limitations Resp: Effort & Inspection: normal respiratory effort Auscultation: clear to auscultation bilaterally Cardio: Rate: regular rate Rhythm: regular rhythm Skin: General skin exam: No normal color Rashes: no rashes Wounds: wounds noted Other: laceration of noted left lower leg closed with Steri-Strips with surrounding erythema, warmth, and edema. Distal pulses 2+ Neuro: General: moves all extremities Speech: normal speech Gait exam (Neuro): Normal gait present Extrem: Left lower extremity: lower leg Details: erythema, tenderness, localized swelling, pitting edema and laceration; inspection abnormal and no ecchymosis Psych: Mental Status: mental status grossly normal Affect: normal affect Attitude: cooperative Course Course Level of Care: Express Care Visit MDM - Extremity Injury (Lower) MDM Narrative Medical decision making narrative: laceration closed well with Steri-Strips. Continue wound care at home. Will place on antibiotics for cellulitis. Discharge instructions reviewed with patient, as well as provided in writing per nursing staff. The instructions also include specific and strict return/GO TO THE ER as well as f/u information. All questions have been answered, and the patient deny any further questions with discharge and discharge plan. Differential Diagnosis Differential diagnosis: Likely other ( Cellulitis, rash, contact dermatitis, laceration) Medical Records Attestation: I reviewed the patient's medical records. Discharge Plan Discharge Clinical Impression: Cellulitis of left lower extremity, Laceration of left leg Patient Disposition: Home Condition: Stable Instructions: Antibiotic Form, Laceration (ED), Cellulitis (ED) Additional Instructions: Clean with soap and water only; Avoid using alcohol and peroxide. Elevate the affected area if possible Alternate Tylenol/ibuprofen for as needed for pain Acetaminophen(Tylenol) 650-1000mg every 4-6hours with max of 4000mg/day. Nonsteroidal anti-inflammatory agent (NSAIDs-ibuprofen): 400mg every 4-6hours with max 2400mg/day Take antibiotic until it's gone. Please schedule a follow up visit with your personal physician for further evaluation and treatment within 3-5days OR if your symptoms persist, change or worsen significantly before you can contact your personal physician then please, without delay, go to the emergency department for further evaluation. Patient Language: Northern Irish Prescriptions: New cephalexin 500 mg capsule 500 mg PO Q12H Qty: 20 0RF No Action losartan 25 mg Tablet 25 mg PO DAILY furosemide 40 mg Tablet 40 mg PO DAILY lorazepam 2 mg Tablet 2 mg PO PRN MDD TID PRN (Reason: Anxiety) albuterol sulfate 90 mcg/actuation HFA aerosol inhaler INHALATION potassium magnesium ergocalciferol (vitamin D2) [Vitamin D2] 1,250 mcg (50,000 unit) capsule PO WEEKLY Follow-up/Referrals: Harms,Paul Mccormick M.D. [Primary Care Provider] - (1-2 weeks ) Time of Disposition: 11:24
== END 2024-12-31 11:30 | disposition home or self-care (01) ==
PROVIDERS: Emergency Provider Nurse Practitioner Family; PCP Family Medicine
DX: L03.116 Cellulitis of left lower limb (principal); S81.812A Laceration without foreign body, left lower leg, initial encounter; W20.8XXA Other cause of strike by thrown, projected or falling object, initial encounter
CPT/HCPCS: 99213; G0463

== ENCOUNTER 2025-06-04 11:38 | Emergency (ER) | payer MEDICARE, SELFPAY ==
--- OUTSIDE RECORDS SUMMARY | 2025-06-04 11:40 | XMS_ITS | Clinical Summary ---
Author Organization [facility] Address [address] 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 Gender Identity Not on file Sexual Orientation Not on file Last Filed Vital Signs Vital Sign Reading Time Taken Comments Blood Pressure 130/58 05/13/2011 11:22 AM HAND PRESSER Pulse 96 05/13/2011 11:22 AM HAND PRESSER Temperature 36.9 C (98.4 F) 05/13/2011 11:22 AM HAND PRESSER Respiratory Rate 18 05/13/2011 11:22 AM HAND PRESSER Oxygen Saturation - - Inhaled Oxygen Concentration - - Weight 68 kg (150 lb) 05/13/2011 11:22 AM HAND PRESSER Height 160 cm (5' 3) 05/13/2011 11:22 AM HAND PRESSER Body Mass Index 26.57 05/13/2011 11:22 AM HAND PRESSER Plan of Treatment Health Maintenance Due Date Last Done Comments DTAP/TDAP/TD VACCINES (1 - Tdap) 01/19/1960 PNEUMOCOCCAL VACCINE 50+ YEARS (1 of 1 - PCV) 01/18/19 91 ZOSTER VACCINE (1 of 2) 1991 OSTEOPOROSIS SCREENING 2006 RSV VACCINE (60+ or ) (1 - 1-dose 75+ series) 01/19/2016 INFLUENZA VACCINE (#1) 2025 Insurance MEDICARE PART A AND B [facility]
--- OUTSIDE RECORDS SUMMARY | 2025-06-04 11:40 | XMS_ITS | Encounter Summary ---
Author Organization [facility] Address 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
--- OUTSIDE RECORDS SUMMARY | 2025-06-04 11:40 | XMS_ITS | Clinical Summary ---
Author Organization [facility] Address [address] [place] [id number] Care Team Providers Care Medical Transport Specialist Name Role Phone Unavailable Primary Care Provider [...] - 1-dose 75+ series) 01/19/2016 COVID-19 Vaccine ( - 2024-2 6 season) 2025 Influenza Adult (#1) 2025 Hepatitis A Vaccines Aged Out No long er eligible based on patient's age to complete this topic Meningococcal B Vaccine Aged Out No l onger eligible based on patient's age to complete this topic Meningococcal Vaccine Aged Out No toya liz eligible based on patient's age to complete this topic RSV Immunizations Under 20 Months Aged Out No longer eligible based on patient's age to complete this topic
--- OUTSIDE RECORDS SUMMARY | 2025-06-04 11:41 | XMS_ITS | Encounter Summary ---
Author Organization [facility] Healthcare Address [address] [place] [address] Care Team Providers Care Digital Media Intern Name Role Phone Paul Hernandez MD Primary Care Provider [phone] Luis Felipe Azul MD Unavailable [phone] Jerel Dupont MD Unavailable [phone] Encounter Details Date Type Department Care Team (Late st Contact Info) Description 05/23/2025 Results Follow-Up [facility] of [address] [address] Anisha Miller, VENKATA [address] [place] [address] CT Chest WO Contrast Social History Tobacco Use Types Packs/Day Years Used Date Smoking Tobacco: Former Cigarettes 1.5 51 1 957 - 2008 Passive Smoke Exposure: Past Smokeless Tobacco: Never Comments:Smoking History Pac ks/day: 2 Packs Alcohol Use Standard Drinks/Week Comments No 0 (1 standard drink = 0.6 oz pur e alcohol) [facility] Utilities Answer Date Recorded In the past 12 months has [employer], gas, oil, or water company threatened to shut off services in your home? No 07/29/2023 Social Connection and Isolation Panel Answer Date Recorded In a typical week, how many times do you talk on the phone with family, friends, or neighbors? More than three times a week 07/29/2023 How often do you get togethe r with friends or relatives? Once a week 07/29/2023 How often do you attend chur ch or taoism services? Never 07/29/2023 Do you belong to any clubs o r organizations such as orthodoxy groups, unions, fraternal or athletic groups, or [...] points, staff should administer the PHQ-9) 0 05/10/2025 Hunger Vital Sign Answer Date Recorded Within [...] place to sleep or slept in a nursing home (including now)? 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
--- OUTSIDE RECORDS SUMMARY | 2025-06-04 11:41 | XMS_ITS | Clinical Summary ---
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 measured 1.0 x 0.[address] dated 04/28/2022 and 0.8 x 0.[address] dated 05/24/2014, and given relative long-term stability, this likely represents a benign etiology (axial image 53). . MEDIASTINUM/PRASHANTH: There is cardiomegaly. Mitral valve calcifications are noted. There is no definite evidence of a pericardial effusion. There are nonspecific pericardial calcifications noted along the inferior aspect of the left ventricle, which is grossly unchanged since 04/28/2022. There are atherosclerotic changes of the aorta and coronary vessels. There is no definite unenhanced CT evidence of mediastinal, hilar, or axillary lymphadenopathy. There are scattered subcentimeter mediastinal lymph nodes noted with the largest measuring 0.5 cm and subcarinal region (axial image 43). CORONARY ARTERY CALCIFICATION: Present. CHEST WALL: No masses. No subcutaneous air.. HARDWARE/LINES/TUBES: None. UPPER ABDOMEN: There is a small hiatal hernia. The bilateral adrenal glands are grossly stable and unremarkable. MUSCULOSKELETAL: There is mild osteopenia. There is a minimal to mild dextroscoliotic curvature the spine with degenerative changes. OTHER: No other significant abnormality. IMPRESSION: 1. Redemonstration of irregular nodule in the medial right lower lobe measuring up to 1.0 cm, which is overall grossly similar to prior CT dated 04/28/2022 and minimally increase in size in comparison to prior remote CT dated 05/24/2014, and given relative long-term stability, this nodule likely represents benign etiology. 2. Mild emphysematous changes of lungs with scattered subsegmental atelectasis and scarring. Electronically signed by: Tanvir Garcia D.O. Peterson Salas NP IMG CT PROCEDURES Final Resul t * Dexa Axial Skeleton Bone Density 1 or 2 Site (02/04/2023 1:02 PM CDT) Anatomical Region Laterality Modality Body N/A Other 02/04/2023 6:46 PM CDT Narrative 02/04/2023 6:48 PM CDT EXAM DESCRIPTION: DEXA AXIAL SKELETON BONE DENSITY 1 OR MORE SITES REASON FOR STUDY: 83 y/o year old F with given history of: post-menopausal osteoporosis prevention Screening. 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 MF: GRAHAM Report ID: [id number] Reading Location: [place] [id number] Procedure Note Aniket John MD - 02/04/2023 EXAM DESCRIPTION: DEXA AXIAL SKELETON BONE DENSITY 1 OR MORE SITES REASON FOR STUDY: 83 y/o year old F with given history of: post-menopausal osteoporosis prevention Screening. 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
--- OUTSIDE RECORDS SUMMARY | 2025-06-04 11:41 | XMS_ITS | Clinical Summary ---
Author Organization [facility] Address [address] [facility] [place] [address] Phone Care Team Providers Care Rn Visiting Name Role Phone Paul Hernandez MD Primary Care Provider [phone] Allergies Active Allergy Reactions Criticality Noted Date [...] every day 6 Active ergocalciferol (VITAMIN D) 57753 UNIT Capsule TK 1 C PO Q [...] for Mild or more severe pain. Active Budeson-Glycopy rrol-Formoterol (Breztri Aerosphere) 160-9-4.8 MCG/ACT Aerosol Take 2 [...] 50 MCG/ACT AEROSOL POWDER, BREATH ACTIVATED 1 [place] by Nasal route daily. Active furosemide (LASIX) 40 MG Tablet Take 1 Tablet by mouth 2 times daily. Active Magnesium 200 MG Tablet Take 1 Tablet by mouth daily. Active Multivitamin-Mi nerals (Multivitamin Women 50+) Tablet Take 1 Tablet [...] for Mild or more severe pain. 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 Pulmonary hypertension 11/05/2017 Non morbid obesity 11/05/2017 Chronic respiratory failure with hypoxia 018 Immunizations Immunization Administration Dates Next Due TDAP [...] lb 4.8 oz) 06/24/2018 1:13 P M INKJET OPERATOR Height 160 cm (5' 3) 06/24/2018 1:13 PM INKJET OPERATOR Body Mass Index 33.36 06/24/2018 1:13 PM INKJET OPERATOR Plan of Treatment Health Maintenance Due Date Last Done Comments Hepatitis C Virus (HCV) Screening 1940 Medicare Initial AWV G0438 12/27/2006 DEXA Bone Density 02/04/2025 02/04/2023, , 01/26/2019 Influenza Immunization (#1) 02/27/202503/29, 03/26/2023, 03/13/2023, Additional history exists SARS-COV-2 Immunization ( season) 2025 04/11/2021, 10/06/2020, 09/10/2020 Pneumococcal Immunization (50+ years) Completed 04/29/2016, 06/29/2010 [...] age to complete this topic Insurance MEDICARE [facility] Advance Directives * Full Code (Latest Code Status on File) Date Activated Date Inactivated Comments 12/07/2024 8:00 PM Care Teams Rn Visiting Relationship Specialty Start Date End Date Paul Hernandez MD [address] [place] [address] PCP - General Internal Medicine 09/01/17
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
[2025-06-04 11:47] VITALS: BP 149/56; PULSE 79; RESP 18; TEMP 36.6; O2SAT 96
--- NOTE | 2025-06-04 11:57 | ED.FEMALEGU ---
HPI - Female Genitourinary General Chief complaint: Urogenital-Female Stated complaint: Urinary Problem History of Present Illness HPI Narrative: 85 yo F presents with c/o dysuria, foul smelling urine, cloudy urine. Saw PCP may 31 and explained symptoms. Did not give urine sample, just gave me an antibiotic. Denies N/v. Afebrile. All systems reviewed and negative except as noted above. Related Data Home Medications ?Medication ?Instructions ?Recorded ?Confirmed ?Last Taken ?Type furosemide 40 mg tablet 40 mg PO DAILY 01/29/22 01/29/22 Unknown History lorazepam 2 mg tablet 2 mg PO PRN PRN Anxiety 01/29/22 01/29/22 Unknown History losartan 25 mg tablet 25 mg PO DAILY 01/29/22 04/14/22 Unknown History ergocalciferol (vitamin D2) 1,250 mcg PO WEEKLY 04/14/22 Unknown History mcg (50,000 unit) capsule (Vitamin D2) albuterol sulfate 90 mcg/actuation inhalation 12/31/24 Unknown History aerosol inhaler magnesium 12/31/24 Unknown History potassium 12/31/24 Unknown History Allergies Allergy/AdvReac Type Severity Reaction Status Date / Time carvedilol Allergy Unknown Verified 06/04/25 11:54 Sulfa (Sulfonamide Allergy Rash Verified 06/04/25 11:54 Antibiotics) PMFSH Comments At time of signature, agree with nursing past medical, surgical, social and family history. There is no relevant family history pertinent to the presenting complaint. Exam Narrative: GENERAL: This is a well-nourished, well-developed patient, in no apparent distress. HEAD: normocephalic, atraumatic. EYES: PERRL. Sclera clear/white. Vision is grossly intact. EARS: External ears normal NOSE: External nose normal NECK: Neck supple, non-tender without lymphadenopathy, masses or thyromegaly. CARDIOVASCULAR: Regular rate and rhythm without murmurs, gallops, or rubs. RESPIRATORY: Clear to auscultation. Breath sounds equal bilaterally. No wheezes, rales, or rhonchi. SKIN: warm, Dry, intact with no suspicious lesions or rash, good texture and turgor. NEURO: awake, alert, and oriented to person, place and time. There were no obvious focal neurologic abnormalities. EXTREMITIES: No joint tenderness, effusion, or edema noted. Course Course Level of Care: Express Care Visit Vital Signs Vital signs: Vital Signs Temperature 36.6 C 06/04/25 11:47 Pulse Rate 79 06/04/25 11:47 Respiratory Rate 18 06/04/25 11:47 Blood Pressure 149/56 H 06/04/25 11:47 Pulse Oximetry 96 06/04/25 11:47 Oxygen Delivery Room Air 06/04/25 11:47 Temperature 36.6 C 06/04/25 11:47 Pulse Rate 79 06/04/25 11:47 Respiratory Rate 18 06/04/25 11:47 Blood Pressure 149/56 H 06/04/25 11:47 Pulse Oximetry 96 06/04/25 11:47 Oxygen Delivery Room Air 06/04/25 11:47 Reviewed MDM MDM Narrative Medical decision making narrative: urinalysis 2+ leukocytes. Pt has taken 3 days of macrobid without relief. Will stop macrobid and start augmentin. pt requesting diflucan. mily been on a lot of antibiotics recently. Differential Diagnosis Differential Diagnosis: Differential diagnostic considerations for female urogenital? issues include urinary tract infection, bacterial vaginosis, cervicitis, ovarian cyst, vaginitis, STI exposure, ovarian torsion, ectopic , cyst of Bartholin?s gland, cystitis, dysmenorrhea.?? Discharge Plan Discharge Clinical Impression: Urinary tract infection Patient Disposition: Home Condition: Stable Instructions: Antibiotic Form, Urinary Tract Infection in Women (ED) Additional Instructions: Take antibiotic as prescribed until gone. Drink at least 64 ounces of water a day. See your doctor if symptoms not improving. Patient Language: Persian Prescriptions: New fluconazole 150 mg tablet 150 mg PO ONCE 1 Days Qty: 1 0RF amoxicillin-pot clavulanate [Augmentin] 500-125 mg tablet 1 tablet PO BID 5 Days Qty: 10 0RF No Action losartan 25 mg Tablet 25 mg PO DAILY furosemide 40 mg Tablet 40 mg PO DAILY lorazepam 2 mg Tablet 2 mg PO PRN MDD TID PRN (Reason: Anxiety) albuterol sulfate 90 mcg/actuation HFA aerosol inhaler INHALATION potassium magnesium ergocalciferol (vitamin D2) [Vitamin D2] 1,250 mcg (50,000 unit) capsule PO WEEKLY Follow-up/Referrals: Harms,Paul Mccormick M.D. [Primary Care Provider] Time of Disposition: 12:09
[2025-06-04 12:04] LABS: EDUAAPPEAR Cloudy; EDUABILI Negative (Negative); EDUABLOOD Negative (Negative); EDUACOLOR1 Dark; EDUAGLUCOSE Negative (Negative); EDUAKETONE Negative (Negative); EDUALEUKO 2+ (Negative); EDUANITRATE Negative (Negative); EDUAPH 6.5; EDUAPROTEIN Negative (Negative); EDUASPGRAVITY 1.015; EDUAUROBILI 0.2
== END 2025-06-04 12:20 | disposition home or self-care (01) ==
PROVIDERS: Emergency Provider Nurse Practitioner Family; PCP Family Medicine
DX: N39.0 Urinary tract infection, site not specified (principal); I25.10 Atherosclerotic heart disease of native coronary artery without angina pectoris; I10 Essential (primary) hypertension; I25.2 Old myocardial infarction; F41.9 Anxiety disorder, unspecified; Z86.73 Personal history of transient ischemic attack (TIA), and cerebral infarction without residual deficits; Z95.5 Presence of coronary angioplasty implant and graft; Z86.16 Personal history of COVID-19
CPT/HCPCS: 81003; 87086; 99213; G0463